=== PATIENT | female | born 1975 | race Two or more races ===

== ENCOUNTER 2021-03-11 18:50 | Emergency (ER) | payer MEDICAID ==
[~2021-03-11] VITALS: Ht 154.9 cm; Wt 62.6 kg
[2021-03-11 19:01] VITALS: BP 116/78
--- NOTE | 2021-03-11 19:25 | NUR ---
CALLED RADIOLOGY FOR CT
--- NOTE | 2021-03-11 19:36 | NUR ---
PT BACK FROM CT
[2021-03-11] MEDS ORDERED: CARI350T PO (20:19)
--- NOTE | 2021-03-11 20:31 | NUR ---
Patient discharged to home in stable condition. Written and verbal after care instructions given. Patient verbalizes understanding of instruction.pt. ambulatory with a steady gait
== END 2021-03-11 20:32 | disposition home or self-care (01) ==
LOC: ER 18:50
DX: M50.20 Other cervical disc displacement, unspecified cervical region (principal); Z79.899 Other long term (current) drug therapy
CPT/HCPCS: 72125-TC; 84703-TC